=== PATIENT | female | born 1965 | race Caucasian/White ===

== ENCOUNTER 2022-11-21 15:40 | Outpatient (CLI) | payer BC, SELFPAY | END 2022-11-21 15:41 | disposition home or self-care (01) | LOC: NFLDREF 11-22 02:59 | PROVIDERS: PCP Family Medicine; Referring Provider Family Medicine; Visit Provider Nurse Practitioner Family | DX: H61.23 Impacted cerumen, bilateral (principal) | CPT/HCPCS: 87426 ==